=== PATIENT | male | born 2000 | race Caucasian/White ===

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

== ENCOUNTER 2020-01-01 09:39 | Outpatient (CLI) | payer OTHER | END 2020-01-01 09:45 | disposition home or self-care (01) | LOC: NUCLEAR 09:39 | PROVIDERS: ATTEND Internal Medicine Hematology & Oncology | DX: U07.1 COVID-19 (principal); J45.998 Other asthma; I80.8 Phlebitis and thrombophlebitis of other sites ==

== ENCOUNTER 2020-04-04 10:14 | Outpatient (CLI) | payer OTHER | END 2020-04-04 10:28 | disposition home or self-care (01) | LOC: NUCLEAR 10:14 | PROVIDERS: ATTEND Internal Medicine Hematology & Oncology | DX: I80.8 Phlebitis and thrombophlebitis of other sites (principal); U07.1 COVID-19; J45.998 Other asthma ==

== ENCOUNTER 2020-05-12 13:39 | Emergency (ER) | payer OTHER ==
[~2020-05-12] VITALS: Ht 172.7 cm; Wt 88.9 kg
[2020-05-12] MEDS ORDERED: CHILDREN'S ASPI81 MG (13:51)
== END 2020-05-12 18:03 | disposition home or self-care (01) ==
LOC: ER 13:39 → EMR PED 13:49 → ER 13:49 → EMR PED 18:03
DX: M79.604 Pain in right leg (principal)

== ENCOUNTER 2022-01-31 18:33 | Emergency (ER) | payer OTHER ==
[~2022-01-31] VITALS: Ht 170.2 cm; Wt 90.7 kg
[~2022-01-31 18:33] MED LIST changes: +CHILDREN'S ASPI81 MG
== END 2022-01-31 23:00 | disposition home or self-care (01) ==
LOC: ER 18:33
DX: R51.9 Headache, unspecified (principal); Z88.8 Allergy status to other drugs, medicaments and biological substances

== ENCOUNTER 2022-10-18 11:17 | Emergency (ER) | payer OTHER ==
[~2022-10-18] VITALS: Ht 170.2 cm; Wt 97.5 kg
== END 2022-10-18 12:49 | disposition home or self-care (01) ==
LOC: ER 11:17
DX: R53.81 Other malaise (principal); J06.9 Acute upper respiratory infection, unspecified; Z88.1 Allergy status to other antibiotic agents; Z88.2 Allergy status to sulfonamides; Z91.018 Allergy to other foods

== ENCOUNTER 2024-01-24 10:14 | Emergency (ER) | payer OTHER ==
[~2024-01-24] VITALS: Ht 167.6 cm; Wt 93.0 kg
[~2024-01-24 10:14] MED LIST changes: +DOLOGEN CAPLET1 EACH PO; +OSEL75CA PO; +TUSNEL LIQUID178 ML PO
[2024-01-24] MEDS ORDERED: FAMOtidine 10 MG/ML (4ML VIAL) IV STA (11:21)
[2024-01-24] MEDS ORDERED: RINGERS SOLUTION,LACTATED 1,000 ML IV STA (11:21)
[2024-01-24 12:13] LABS: HEMATOCRIT 47.6 % (39.0-48.0); HEMOGLOBIN 16.8 g/dL (13-16.00); MEAN CELL VOLUME 84.9 fL (80.0-100.00); MEAN CORPUSCULAR HEMOGLOBIN 29.9 pg (27.00-32.0); MEAN CORPUSCULAR HGB CONC 35.2 g/dl (32.0-36.0); PLATELET COUNT 362 K/uL (150-450); RED BLOOD COUNT 5.61 M/uL (4.00-6.00); RED CELL DISTRIBUTION WIDTH 13.5 % (11.5-14.5)
[2024-01-24 13:44] LABS: ALBUMIN 3.9 gm/dL (3.4-5.0); BILIRUBIN TOTAL 0.58 mg/dL (0.3-1.2); BILIRUBIN,CONJUGATED 0.12 mg/dL (0.0-0.2); BILIRUBIN,UNCONJUGATED 0.46 mg/dL (0.0-0.6); CALCIUM 9.8 mg/dL (8.5-10.1); CREATININE SERUM 0.84 mg/dL (0.70-1.30); GFR 113.23; POTASSIUM 4.74 mEq/L (3.5-5.1); TOTAL PROTEIN 7.8 gm/dL (6.4-8.2)
[2024-01-24 14:15] LABS: URINE APPEARANCE Clear; URINE BILIRRUBIN Negative (NEGATIVE); URINE BLOOD Negative; URINE COLOR Yellow; URINE GLUCOSE Negative (NEGATIVE); URINE KETONE Negative (NEGATIVE); URINE LEUKOCYTE Negative; URINE NITRATE Negative; URINE PROTEIN Negative (NEGATIVE); URINE UROBILINOGEN 0.2 E.U./dl
[2024-01-24 14:18] LABS: URINE BACTERIA 22.6 uL (0.0-1933); URINE EPITHELIAL CELLS 7.2 uL (0.0-38.8); URINE WBC 16.8 uL (0.0-23.2)
[2024-01-24 14:44] LABS: URINE RBC 1.8 uL (0.0-20.8)
== END 2024-01-24 17:13 | disposition home or self-care (01) ==
LOC: ER 10:16
PROVIDERS: General Practice
DX: R10.9 Unspecified abdominal pain (principal); J45.909 Unspecified asthma, uncomplicated; Z90.13 Acquired absence of bilateral breasts and nipples; Z91.018 Allergy to other foods; K52.89 Other specified noninfective gastroenteritis and colitis
CPT/HCPCS: 36415; 74177; 96365; 99284; J3490; Q9965

== ENCOUNTER 2024-03-22 09:06 | Emergency (ER) | payer OTHER ==
[~2024-03-22] VITALS: Ht 167.6 cm; Wt 99.8 kg
[2024-03-22] MEDS ORDERED: LEVALBUTEROL HCL 1.25 MG/3 ML SOLUTION IH ONE (10:30)
[2024-03-22] MEDS ORDERED: GUAIFENESIN/DEXTROMETHORPHAN 10ML BLIST.PACK PO ONE ×2 (10:30→10:53)
[2024-03-22] MEDS ORDERED: LEVALBUTEROL HCL 0.63 MG/3 ML SOLUTION IH ONE (11:48)
[2024-03-22 12:07] LABS: HEMATOCRIT 48.1 % (39.0-48.0); HEMOGLOBIN 16.7 g/dL (13-16.00); MEAN CELL VOLUME 85.3 fL (80.0-100.00); MEAN CORPUSCULAR HEMOGLOBIN 29.6 pg (27.00-32.0); MEAN CORPUSCULAR HGB CONC 34.7 g/dl (32.0-36.0); PLATELET COUNT 393 K/uL (150-450); RED BLOOD COUNT 5.64 M/uL (4.00-6.00); RED CELL DISTRIBUTION WIDTH 14.1 % (11.5-14.5)
[2024-03-22 12:24] LABS: ALBUMIN 3.4 gm/dL (3.4-5.0); BILIRUBIN TOTAL 0.6 mg/dL (0.3-1.2); CALCIUM 9.7 mg/dL (8.5-10.1); CREATININE SERUM 0.84 mg/dL (0.70-1.30); GFR 112.26; GLOBULINA 4.5 G/DL (2.4-3.5); POTASSIUM 4.23 mEq/L (3.5-5.1); TOTAL PROTEIN 7.9 gm/dL (6.4-8.2)
[2024-03-22] MEDS ORDERED: ALBUTEROL SULFATE 3 ML/2.5 MG AMPUL.NEB IH SCH (14:00)
[2024-03-22] MEDS ORDERED: ALBUTEROL SULFATE 3 ML/2.5 MG AMPUL.NEB IH ONE (15:05)
[2024-03-22 15:42] LABS: ABG PH 7.401 (7.35-7.45); ABG PO2 75.8 mmHg (80-100); BASE EXCESS 1.5 mmol/l; BICARBONATE 26.7 mmol/l (23-25); SaO2 95.1 %; allen test SATISFACTORY; puncture site RADIAL RIGHT
[2024-03-22 15:43] LABS: o2 21 %
== END 2024-03-22 18:21 | disposition home or self-care (01) ==
LOC: ER 09:08
PROVIDERS: Emergency Medicine
DX: R53.81 Other malaise (principal); J45.901 Unspecified asthma with (acute) exacerbation; J45.909 Unspecified asthma, uncomplicated; Z20.822 Contact with and (suspected) exposure to COVID-19; Z88.1 Allergy status to other antibiotic agents; Z88.8 Allergy status to other drugs, medicaments and biological substances; Z91.018 Allergy to other foods

== ENCOUNTER 2024-10-17 15:05 | Emergency (ER) | payer OTHER ==
[~2024-10-17] VITALS: Ht 170.2 cm; Wt 99.8 kg
[2024-10-17] MEDS ORDERED: [UNRECOGNIZED DRUG - OTHER] PO (15:48)
[2024-10-17 15:49] VITALS: BP 130/86; O2SAT 99
[2024-10-17 17:10] LABS: BASO % 0.7 % (0.1-1.2); EOS # 0.15 (0.04-0.54); EOS % 1.4 % (0.7-7.0); LYMPH # 2.20 (1.18-3.74); LYMPH % 20.5 % (19.3-53.1); MEAN PLATELET VOLUME 9.20 fl (9.4-12.4); MONO # 0.99 (0.24-0.82); MONO % 9.2 % (4.7-12.5); NEUT # 7.24 (1.56-6.13); NEUT % 67.7 % (34.0-71.1); RED CELL DISTRIBUTION WIDTH 12.4 % (11.6-14.4)
[2024-10-17 17:31] LABS: COVID-19 AG NEGATIVE (NEGATIVE)
[2024-10-17 17:34] LABS: ALT/SGPT 32.0 U/L (12-78); AST/SGOT 22.0 U/L (15-37); BILIRUBIN TOTAL 0.81 mg/dL (0.3-1.2); BUN CREA RATIO 15.0 (7.0-25.0); CREATININE SERUM 0.95 mg/dL (0.70-1.30); GFR 97.4; GLOBULINA 4.1 G/DL (2.4-3.5); GLUCOSE FASTING 90.0 mg/dL (65-100); OSMOLALITY SERUM 281.0 MOSM/KG (275-295)
[2024-10-17] MEDS ORDERED: KETOROLAC TROMETHAMINE 30 MG VIAL IM STA (17:47)
[2024-10-17] MEDS ORDERED: ORPHENADRINE CITRATE 30 MG/ML AMPUL IM STA (17:48)
[2024-10-17] MEDS ORDERED: KETOROLAC TROMETHAMINE 30 MG VIAL ONE (17:59)
[2024-10-17] MEDS ORDERED: ORPHENADRINE CITRATE 30 MG/ML AMPUL ONE (17:59)
[2024-10-17] MEDS ORDERED: SUMATRIPTAN SUCCINATE 6 MG/0.5 ML VIAL SUBCUTANEO STA (19:39)
[2024-10-17] MEDS ORDERED: SUMATRIPTAN SUCCINATE 6 MG/0.5 ML VIAL SUBCUTANEO ONE (19:57)
== END 2024-10-17 22:01 | disposition home or self-care (01) ==
LOC: ER 15:12
PROVIDERS: General Practice
DX: G43.909 Migraine, unspecified, not intractable, without status migrainosus (principal); Z20.822 Contact with and (suspected) exposure to COVID-19; Z88.8 Allergy status to other drugs, medicaments and biological substances; Z91.018 Allergy to other foods